=== PATIENT | male | born 1990 | race Caucasian/White ===

== ENCOUNTER 2016-09-11 12:28 | Emergency (ER) | payer OTHER ==
[2016-09-11] MEDS ORDERED: NS 0.9% 1000 ML* 1,000 ML IV ONE (13:48)
[2016-09-11 14:07] LABS: Hematocrit 47 % (42-52); Hemoglobin 15.4 g/dl (14.0-18.0); Mean Corpuscular HGB Conc 33 g/dl (31-36); Mean Corpuscular Hemoglobin 31 pg (27-31); Mean Corpuscular Volume 93 fL (80-94); Mean Platelet Volume 8 um3 (7.4-10.4); Red Blood Count 5.04 10^6/ul (4.0-5.4); Red Cell Distribution Width 13 % (10.5-15); White Blood Count 4.4 10^3/ul (3.5-10.8)
[2016-09-11 14:18] LABS: ALT 29 U/L (7-52); Albumin 4.1 g/dL (3.2-5.2); Alkaline Phosphatase 37 U/L (34-104); BUN/Creatinine Ratio 11.7 (8-20); Blood Urea Nitrogen 11 mg/dL (6-24); CO2 Carbon Dioxide 20 mmol/L (22-32); Calcium 8.9 mg/dL (8.6-10.3); Chloride 109 mmol/L (101-111); Creatine Kinase 282 U/L (10-223); EGFR African American 123.8 (>60); EGFR Non-African American 96.3 (>60); Globulin 2.6 g/dL (2-4); Glucose 110 mg/dL (70-100); Magnesium 1.9 mg/dL (1.9-2.7); Sodium 142 mmol/L (133-145); Total Protein 6.7 g/dL (6.4-8.9)
[2016-09-11 14:38] VITALS: BP 127/78
--- NOTE | 2016-09-11 15:09 | ED ---
I, Oh,Soarnold, scribed for Rocky Mills MD on 09/11/16 at 1351 . Neurological HPI - HPI Summary HPI Summary: This 26 y/o male presents to ED for witnessed seizure this morning. The episode lasted about 4 minutes, and pt was noted with four extremities tremor and post ictal for 30 minutes after the episode. He was not able to recall the year. He states that he must have had his episode in bed and fell out during the episode. Friends present at bedside reports that pt was nonverbal. Negative urinary incontinence or tongue biting. Ecchymosis noted over left maxillofacial , but pt is currently denying any pain or any other injuries. PMHx is significant for known seizure that is controlled with medications. Pt is currently on 2000 mg Keppra, but reports that he may have forgotten a dose last night. Last dose was taken this morning. Mild EtOH consumption yesterday night. last EEG is 2014. Pt is law school student. - History of Current Complaint Chief Complaint: EDSeizure Stated Complaint: SEIZURE Time Seen by Provider: 09/11/16 13:28 Hx Obtained From: Patient, Medical Records, Other: - Friends present at bedside Onset/Duration: Sudden Onset Timing: Intermittent Episodes Lasting: - 4 minutes Current Severity: None Seizure Character: Generalized Aggravating: Nothing Alleviating: Spontanious Resolution Associated Signs and Symptoms: Positive: Confusion - Post-ictal. Negative: Fever - Allergy/Home Medications Allergies/Adverse Reactions: Allergies Allergy/AdvReac Type Severity Reaction Status Date / Time No Known Allergies Allergy Verified 09/11/16 12:47 Home Medications: Home Medications Keppra TAB* PO BID 09/11/16 [History] PMH/Surg Hx/FS Hx/Imm Hx Neurological History: Reports: Hx Seizures Infectious Disease History: No Infectious Disease History: Denies: Traveled Outside the [place] in Last 30 Days - Family History Known Family History: Negative: Cardiac Disease - Social History Occupation: Student - Law school student Alcohol Use: Weekly Hx Substance Use: No Substance Use Type: Reports: None Hx Tobacco Use: No Smoking Status (MU): Never Smoked Tobacco Review of Systems Negative: Fever Negative: Other - tongue biting Negative: incontinence Positive: Bruising - over left maxillofacial Neurological: Other - positive All Other Systems Reviewed And Are Negative: Yes Physical Exam - Summary Physical Exam Summary: The patient is well-nourished in no acute distress and in no acute pain. The skin is warm and dry and skin color reflects adequate perfusion. Mild abrasion on right ear, right upper lip. Contusion on left maxillofacial, nontender. HEENT: The pupils are equal and reactive. The conjunctivae are clear and without drainage. Nares are patent and without drainage. Mouth reveals moist mucous membranes and the throat is without erythema and exudate. The external ears are intact. The ear canals are patent and without drainage. The tympanic membranes are intact. No mal occlusion. No trismus. Negative tongue injury. No bailey sign. No raccoon eyes. Neck is supple with full range of motion and non-tender. There are no carotid bruits. There is no neck vein distension. Respiratory: Chest is non-tender. Lungs are clear to auscultation and breath sounds are symmetrical and equal. Cardiovascular: Hear is regular rate and rhythm. There is no murmur or rub auscultated. There is no peripheral edema and pulses are symmetrical and equal. Abdomen: The abdomen is soft and non-tender. There are normal bowel sounds heard in all four quadrants and there is no organomegaly palpated. Musculoskeletal: There is no back pain noted. Extremities are non-tender with full range of motion. There is good capillary refill. There is no peripheral edema or calf tenderness elicited. Neurological: Patient is alert and oriented to person, place and time. The patient has symmetrical motor strength in all four extremities. Cranial nerves are grossly intact. Gaze normal. Psychiatric: The patient has an appropriate affect and does not exhibit any anxiety or depression. Triage Information Reviewed: Yes Vital Signs On Initial Exam: Initial Vitals Temp Pulse Resp BP Pulse Ox 98.7 F 88 16 138/73 98 09/11/16 12:30 09/11/16 12:30 09/11/16 12:30 09/11/16 12:30 09/11/16 12:30 Vital Signs Reviewed: Yes - Sonia Coma Scale Coma Scale Total: 15 Diagnostics - Vital Signs Vital Signs Temp Pulse Resp BP Pulse Ox 09/11/16 13:00 88 10 130/69 97 09/11/16 12:36 94 98 09/11/16 12:34 138/83 09/11/16 12:31 98.7 F 88 16 138/73 98 09/11/16 12:30 98.7 F 88 16 138/73 98 - Laboratory Lab Results: Lab Results 09/11/16 09/11/16 09/11/16 Range/Units 12:52 12:52 14:00 WBC 4.4 (3.5-10.8) 10^3/ul RBC 5.04 (4.0-5.4) 10^6/ul Hgb 15.4 (14.0-18.0) g/dl Hct 47 (42-52) % MCV 93 (80-94) fL MCH 31 (27-31) pg MCHC 33 (31-36) g/dl RDW 13 (10.5-15) % Plt Count 216 (150-450) 10^3/ul MPV 8 (7.4-10.4) um3 Neut % (Auto) 59.9 (38-83) % Lymph % (Auto) 29.6 (25-47) % [place] % (Auto) 8.4 (1-9) % Eos % (Auto) 1.2 (0-6) % Baso % (Auto) 0.9 (0-2) % Absolute Neuts (auto) 2.7 (1.5-7.7) 10^3/ul Absolute Lymphs (auto) 1.3 (1.0-4.8) 10^3/ul Absolute Monos (auto) 0.4 (0-0.8) 10^3/ul Absolute Eos (auto) 0.1 (0-0.6) 10^3/ul Absolute Basos (auto) 0 (0-0.2) 10^3/ul Absolute Nucleated RBC 0 10^3/ul Nucleated RBC % 0.1 INR (Anticoag Therapy) 0.91 (0.89-1.11) Sodium 142 (133-145) mmol/L Potassium TNP Chloride 109 (101-111) mmol/L Carbon Dioxide 20 L (22-32) mmol/L Anion Gap TNP BUN 11 (6-24) mg/dL Creatinine 0.94 (0.67-1.17) mg/dL Est GFR ( Amer) 123.8 (>60) Est GFR (Non-Af Amer) 96.3 (>60) BUN/Creatinine Ratio 11.7 (8-20) Glucose 110 H (70-100) mg/dL Lactic Acid (0.5-2.0) mmol/L Calcium 8.9 (8.6-10.3) mg/dL Magnesium 1.9 (1.9-2.7) mg/dL Total Bilirubin 0.50 (0.2-1.0) mg/dL AST TNP ALT 29 (7-52) U/L Alkaline Phosphatase 37 (34-104) U/L Total Creatine Kinase 282 H (10-223) U/L Total Protein 6.7 (6.4-8.9) g/dL Albumin 4.1 (3.2-5.2) g/dL Globulin 2.6 (2-4) g/dL Albumin/Globulin Ratio 1.6 (1-3) 09/11/16 09/11/16 Range/Units 14:00 14:00 WBC (3.5-10.8) 10^3/ul RBC (4.0-5.4) 10^6/ul Hgb (14.0-18.0) g/dl Hct (42-52) % MCV (80-94) fL MCH (27-31) pg MCHC (31-36) g/dl RDW (10.5-15) % Plt Count (150-450) 10^3/ul MPV (7.4-10.4) um3 Neut % (Auto) (38-83) % Lymph % (Auto) (25-47) % [place] % (Auto) (1-9) % Eos % (Auto) (0-6) % Baso % (Auto) (0-2) % Absolute Neuts (auto) (1.5-7.7) 10^3/ul Absolute Lymphs (auto) (1.0-4.8) 10^3/ul Absolute Monos (auto) (0-0.8) 10^3/ul Absolute Eos (auto) (0-0.6) 10^3/ul Absolute Basos (auto) (0-0.2) 10^3/ul Absolute Nucleated RBC 10^3/ul Nucleated RBC % INR (Anticoag Therapy) (0.89-1.11) Sodium (133-145) mmol/L Potassium 4.4 Chloride (101-111) mmol/L Carbon Dioxide (22-32) mmol/L Anion Gap BUN (6-24) mg/dL Creatinine (0.67-1.17) mg/dL Est GFR ( Amer) (>60) Est GFR (Non-Af Amer) (>60) BUN/Creatinine Ratio (8-20) Glucose (70-100) mg/dL Lactic Acid 1.1 (0.5-2.0) mmol/L Calcium (8.6-10.3) mg/dL Magnesium (1.9-2.7) mg/dL Total Bilirubin (0.2-1.0) mg/dL AST 40 H ALT (7-52) U/L Alkaline Phosphatase (34-104) U/L Total Creatine Kinase (10-223) U/L Total Protein (6.4-8.9) g/dL Albumin (3.2-5.2) g/dL Globulin (2-4) g/dL Albumin/Globulin Ratio (1-3) Result Diagrams: 09/11/16 12:52 09/11/16 14:00 Lab Statement: Any lab studies that have been ordered have been reviewed, and results considered in the medical decision making process. - EKG 1311 Cardiac Rate: NL - 81 bpm EKG Rhythm: Sinus Rhythm ST Segment: Normal Ectopy: None EKG Interpretation: Early repolarization Re-Evaluation - Re-Evaluation First Eval Re-Evaluation Time: 14:47 Comment: Dr. Mills in room to update pt and friends present at bedside with lab results. Hard copies shared with pt. Course/Dx - Course Assessment/Plan: This 26 y/o male presents to ED for recurrent episode of known seizure this morning. Pt was noted by his friends on floor with four extremities tremors. Negative tongue biting or urinary incontinence during 4 minute episodes. Friends reports 30 minutes post-ictal during which pt was not able to recall the year. Pt reports that he controls his seizure with Keppra, but may have missed dose last night. Last dose was this morning. Positive EtOH consumption last night. Blood work is noted with elevated total kinase of 282 and AST of 40, but otherwise wnl. Pt was discharged with instruction to f/u neurologist and not to drive until cleared - Differential Dx Differential Diagnoses Neuro: Positive: Metabolic Abnormality, Seizure Disorder , Other - non-compliance, alcohol use - Diagnoses Provider Diagnoses: Seizure Discharge - Discharge Plan Condition: Stable Disposition: HOME Patient Education Materials: Recurrent Seizures in Adults (ED) Referrals: [facility] [Outside] - 2 Days Additional Instructions: Please be sure to follow up with your Neurologist at your home. Do not drive vehicle until you are cleared by your doctor. The documentation as recorded by the Alejandro lowry Soohyun accurately reflects the service I personally performed and the decisions made by me, Rocky Mills MD.
== END 2016-09-11 14:56 | disposition home or self-care (01) ==
LOC: ED 12:28
DX: R56.9 Unspecified convulsions (principal); R41.0 Disorientation, unspecified; S00.83XA Contusion of other part of head, initial encounter; X58.XXXA Exposure to other specified factors, initial encounter; Y93.9 Activity, unspecified; Y92.9 Unspecified place or not applicable; Y99.9 Unspecified external cause status
CPT/HCPCS: 36415; 80053; 80177; 82550; 83605; 83735; 85025; 85610; 93005; 99283